=== PATIENT | female | born 1990 | race African-American/Black ===

== ENCOUNTER 2016-05-14 11:18 | Emergency (ER) | payer MEDICAID ==
[2016-05-14 11:42] VITALS: BP 139/83
--- NOTE | 2016-05-14 11:57 | EDM.PDOC ---
ED HPI HEADACHE COMPLAINT - General Chief Complaint: Headache Stated Complaint: MIGRANE,VOMITING Time Seen by Provider: 05/14/16 11:47 Source of Information: Reports: Patient History Limitations: Reports: No limitations - History of Present Illness INITIAL COMMENTS - FREE TEXT/NARRATIVE: Patient presents for evaluation and treatment of a migraine headache. the patient reports that the headache began this morning. She reports associated symptoms of photophobia, nausea and one episode of vomiting. She states that the headache is located in the front of her head and is worse than normal. Patient denies any neck pain, blurry vision or double vision. She denies any recent fevers, cough, colds or upper respiratory symptoms. She did not take anything for her headache prior to arrival in the ER. Patient reports that her last menstrual period was on April 08. She states she only had some light spotting this month. She is unsure if she is . Location: Reports: frontal Associated Symptoms: Reports: photophobia. Denies: vision changes - Related Data Allergies/ADRs: Allergies Allergy/AdvReac Type Severity Reaction Status Date / Time No Known Allergies Allergy Verified 03/19/16 10:26 Home Meds: Home Meds Labetalol HCl [Labetalol] 200 mg PO BID 11/27/14 [History] Albuterol [Proventil HFA] 1 inh INH Q4H PRN 09/02/15 [History] Diclofenac Sodium [Voltaren] 50 mg PO TIDMEALS #24 tab.ec 03/19/16 [Rx] oxyCODONE HCl/Acetaminophen [Percocet 5-325 mg Tablet] 1 - 2 each PO Q4H PRN # 20 tablet 03/19/16 [Rx] Ciprofloxacin 0.25 ml EARRT TID PRN 05/14/16 [History] Past Medical History - Past Health History Medical/Surgical History: Denies Medical/Surgical History Cardiovascular History: Reports: Hypertension Respiratory History: Reports: Asthma Gastrointestinal History: Reports: GERD ONLINE 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 Neurological History: Reports: Migraines Hematologic History: Reports: Anemia, Iron deficiency Other Dermatologic History: Eczema - Infectious Disease History Infectious Disease History: Reports: Chicken pox - Past Surgical History Female Surgical History: Reports: section Social & Family History - Family History Family Medical History: Noncontributory Neurological: Reports: CVA Oncologic: Reports: Other (see below) Other Oncologic Family History: patient's brother of ca, unsure of what kind. - Tobacco Use Smoking Status *Q: Never Smoker Second Hand Smoke Exposure: No - Caffeine Use Caffeine Use: Reports: None - Recreational Drug Use Recreational Drug Use: No - Living Situation & Occupation Living situation: Reports: , with spouse, with family (2 kids) Occupation: employed ([employer]) ED ROS GENERAL - Review of Systems Review Of Systems: See Below Constitutional: Denies: fever HEENT: Reports: Other (reports photophobia). Denies: Ear pain, Throat pain, Vision change Respiratory: Denies: cough GI/Abdominal: Reports: Nausea, Vomiting (x1 episode) Musculoskeletal: Denies: neck pain Neurological: Reports: headache. Denies: numbness, tingling - Physical Exam Exam: See Below Exam Limited By: No limitations General Appearance: alert, WD/WN, no apparent distress, obese Eye Exam: bilateral eye: EOMI, PERRL Ears: normal external exam, normal canal, hearing grossly normal, normal TMs Nose: normal inspection Throat/Mouth: Normal inspection, Normal lips, Normal teeth, Normal gums, Normal oropharynx, Normal voice, No airway compromise Head Exam: atraumatic, normocephalic Neck: normal inspection, supple, non-tender, full range of motion Respiratory/Chest: no respiratory distress, lungs clear, normal breath sounds Cardiovascular: normal peripheral pulses, regular rate, rhythm, no murmur Neuro Exam (Abbreviated): alert, oriented, CN II-XII intact, normal cognition, normal gait Psychiatric: normal affect, normal mood Skin Exam: Warm, Dry, Normal color Course - Vital Signs Last Recorded V/S: Last Vital Signs Temp 36.2 C 05/14/16 11:41 Pulse 83 05/14/16 11:41 Resp 20 05/14/16 11:41 BP 139/83 05/14/16 11:41 Pulse Ox 98 05/14/16 11:41 - Orders/Labs/Meds Orders: Active Orders 24 hr Category Date Time Status Peripheral IV Care [RC] . DIRECTED Care 05/14/16 11:59 Active Sodium Chloride 0.9% [Saline Flush] Med 05/14/16 11:59 Active 10 ml FLUSH ASDIRECTED PRN Peripheral IV Insertion Adult [OM.PC] Routine Oth 05/14/16 11:57 Ordered Medication Orders Sodium Chloride (Saline Flush) 10 ml FLUSH ASDIRECTED PRN PRN Reason: Keep Vein Open Last Admin: 05/14/16 13:09 Dose: 10 ml Labs: Laboratory Tests 05/14/16 05/14/16 Range/Units 12:58 12:58 Sodium 139 (136-145) mEq/L Potassium 3.9 (3.5-5.1) mEq/L Chloride 104 (98-107) mEq/L Carbon Dioxide 28 (21-32) mEq/L Anion Gap 10.9 (5-15) BUN 8 (7-18) mg/dL Creatinine 0.8 (0.55-1.02) mg/dL Est Cr Clr Drug Dosing 96.73 mL/min Estimated GFR (MDRD) > 60 (>60) mL/min BUN/Creatinine Ratio 10.0 L (14-18) Glucose 96 (74-106) mg/dL Calcium 8.9 (8.5-10.1) mg/dL TSH 3rd Generation 1.035 (0.358-3.74) uIU/mL HCG, Qual Negative (NEGATIVE) Meds: Medications Generic Name Dose Route Start Last Admin Trade Name Freq PRN Reason Stop Dose Admin Sodium Chloride 10 ml 05/14/16 11:59 05/14/16 13:09 Saline Flush FLUSH 10 ml ASDIRECTED PRN Administration Keep Vein Open Discontinued Medications Generic Name Dose Route Start Last Admin Trade Name Freq PRN Reason Stop Dose Admin Diphenhydramine HCl 50 mg 05/14/16 11:59 05/14/16 13:07 Benadryl IVPUSH 05/14/16 12:00 50 mg ONETIME ONE Administration Metoclopramide HCl 10 mg 05/14/16 11:59 05/14/16 13:04 Reglan IVPUSH 05/14/16 12:00 10 mg ONETIME ONE Administration - Re-Assessments/Exams Free Text/Narrative Re-Assessment/Exam: 05/14/16 13:55 Nausea resolved. Headache is greatly improved. Offered additional medication for her headache. She declines and like to go home at this time. Her lab studies have returned. HCG is negative. TSH is within normal limits ar 1.035 Sodium is 139, potassium is 3.9, chloride is 104, Anion gap is 10.9, creatinine is 0.8. Glucose is 96 Will discharge home at this time. Discharge instructions as documented. Departure - Departure Time of Disposition: 13:55 Disposition: Home, Self-Care 01 Condition: good Clinical Impression: Headache Instructions: General Headache Without Cause Referrals: Jeanette Callahan PA [Primary Care Provider] - Forms: ED Department Discharge Additional Instructions: Go home and rest in a dark quiet room. make sure to drink plenty of fluids today. Follow-up with your primary care provider if you continue to have trouble with headaches and migraines. Please return to the ER should your symptoms change or worsen. - My Orders Last 24 Hours: My Active Orders 05/14/16 11:57 Peripheral IV Insertion Adult [OM.PC] Routine 05/14/16 11:59 Peripheral IV Care [RC] . DIRECTED Sodium Chloride 0.9% [Saline Flush] 10 ml FLUSH ASDIRECTED PRN - Assessment/Plan Last 24 Hours: My Active Orders 05/14/16 11:57 Peripheral IV Insertion Adult [OM.PC] Routine 05/14/16 11:59 Peripheral IV Care [RC] . DIRECTED Sodium Chloride 0.9% [Saline Flush] 10 ml FLUSH ASDIRECTED PRN
[2016-05-14] MEDS ORDERED: Sodium Chloride 0.9% 10 ML Syringe FLUSH PRN (11:59)
[2016-05-14] MEDS ORDERED: diphenhydrAMINE 50 MG/ML SDV IVPUSH ONE (11:59)
[2016-05-14] MEDS ORDERED: Metoclopramide 10 MG/2 ML SDV IVPUSH ONE (11:59)
== END 2016-05-14 14:02 | disposition home or self-care (01) ==
LOC: JD.ED 11:18
DX: R51 Headache (principal); I10 Essential (primary) hypertension; J45.909 Unspecified asthma, uncomplicated; K21.9 Gastro-esophageal reflux disease without esophagitis; D50.9 Iron deficiency anemia, unspecified
CPT/HCPCS: 36415; 80048; 84443; 84703; 96374; 96375; 99284; J1200; J2765; J7050